=== PATIENT | female | born 1955 | race Caucasian/White ===

== ENCOUNTER 2024-02-24 15:29 | Inpatient (IN) | payer OTHER, SELFPAY ==
--- NOTE | ~2024-02-24 | CT_ITS ---
CT HEAD WITHOUT CONTRAST CLINICAL INFORMATION: New onset psychosis. COMPARISON: None available. TECHNIQUE: Contiguous axial imaging was performed from the skull base to vertex without intravenous administration of contrast. This CT examination was performed using dose optimization techniques as appropriate, variously including the following: *Automated exposure control *Adjustment of mA and/or kV according to patient size (this includes techniques or standardized protocols for targeted exams where dose is matched to indication/reason for exam; i.e. extremities or head) *Use of iterative reconstruction technique FINDINGS: There is no intracranial hemorrhage, hydrocephalus, extra-axial surface collection, midline shift, or other herniation pattern. Oneil to white matter differentiation is diffusely maintained without evidence of an evolved acute territorial infarct. The basilar cisterns are preserved. No significant soft tissue abnormality. No acute osseous abnormality. The paranasal sinuses and the mastoid air cells are well aerated. Degenerative changes involving the right TMJ. CT/CT head/brain wo IV con IMPRESSION: No acute intracranial abnormality.
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
[2024-02-24 15:32] VITALS: BP 152/82; PULSE 87; RESP 16; TEMP 37; O2SAT 98; BMI 27.5
[2024-02-24 16:24] LABS: Appearance Urine Clear; Color Urine Yellow; Glucose Urine UA Negative (Negative); Leukocyte Esterase Urine Large (3+) (Negative); Nitrite Urine Negative (Negative); Specific Gravity - Urine 1.015 (1.005-1.025); UMIC TRIGGER UACC YES; Urine Blood Negative (Negative); Urine Ketones Negative (Negative); Urine Protein Negative (Neg-Trace)
[2024-02-24 16:27] LABS: Bacteria Urine None Seen (None Seen); Hyaline Casts Urine 0-2 /LPF (0-2); RBC Urine 0-2 /HPF (0-2); UACC Culture Trigger YES; WBC Urine >50 /HPF (0-5)
[2024-02-24 16:34] LABS: MANUAL DIFF FLAG NO
[2024-02-24 16:38] LABS: Basophils Percent Auto 0.2 % (0-2); Eosinophils Percent Auto 0.4 % (0-4); Hematocrit 36.9 % (37.0-47.0); Hemoglobin 12.3 g/dl (12.0-16.0); Imm Gran Abs Auto 0.01 X10*3/uL (0.00-0.03); Imm Gran Pct Auto 0.1 % (0.0-0.4); Lymphocytes Absolute Auto 1.5 X10*3/uL (1.2-4.9); Lymphocytes Percent Auto 16.8 % (20-40); Mean Corpuscular HGB Conc 33.3 g/dl (31.0-35.0); Mean Corpuscular Hemoglobin 30.2 pg (27.0-33.0); Mean Corpuscular Volume 90.7 fL (80.0-98.0); Mean Platelet Volume 9.2 fL (9.4-12.3); Monocytes Absolute Auto 0.6 X10*3/uL (0.1-1.2); Monocytes Percent Auto 6.8 % (2-11); Neutrophils Absolute Auto 6.8 x10*3/uL (2.0-8.3); Neutrophils Percent Auto 75.7 % (45-73); Platelet Count 298 X10*3/uL (160-400); Red Blood Count 4.07 X10*6/uL (4.20-5.50); Red Cell Distribution Width 14.2 % (11.0-16.0); White Blood Count 8.9 X10*3/uL (4.8-10.8)
[2024-02-24 17:02] LABS: Alanine Aminotransferase 18 U/L (0-31); Albumin Level 3.6 g/dL (3.5-5.0); Alkaline Phosphatase 50 U/L (39-117); Anion Gap 13 (12-20); Aspartate Amino Transferase 18 U/L (5-31); Bilirubin Total 0.4 mg/dL (0.0-1.0); Blood Urea Nitrogen 8 mg/dL (9-16); Calcium 8.9 mg/dL (8.4-10.2); Carbon Dioxide 23 mmol/L (22-29); Chloride 104 mmol/L (96-108); Estimated Glomerular Filt Rate > 60; Glucose Random 146 mg/dL (60-115); Potassium 4.2 mmol/L (3.3-5.1); Sodium 136 mmol/L (135-145); Total Protein 6.2 g/dL (6.5-8.0)
--- NOTE | 2024-02-24 17:14 | ECG_ITS ---
Test Reason : MED CLEARANCE Blood Pressure : / mmHG Vent. Rate : 101 BPM Atrial Rate : 267 BPM P-R Int : 000 ms QRS Dur : 080 ms QT Int : 382 ms P-R-T Axes : 268 058 040 degrees QTc Int : 495 ms Atrial flutter with variable A-V block with premature ventricular or aberrantly conducted complexes Inferior infarct , age undetermined Abnormal ECG No previous ECGs available Referred By: Yobany Robbins Electronically Signed By:RIGOBERTO TALAVERA
[2024-02-24] MEDS: LORazepam 0.5 MG TABLET PO (20:06)
[2024-02-24] MEDS: Apixaban 5 MG TABLET PO (20:06)
--- NOTE | 2024-02-24 20:51 | MHC.EDTECH ---
pt requesting medications for gas and to sleep
[2024-02-24] MEDS: Simethicone 80 MG TAB.CHEW 160 MG PO (21:54)
[2024-02-24] MEDS: Melatonin 3 MG TABLET 9 MG PO (21:54)
[2024-02-25 08:26] VITALS: BP 95/65; PULSE 86; RESP 16; TEMP 37.2; O2SAT 98
[2024-02-25] MEDS: cefuroxime axetiL 250 MG TABLET PO ×2 (09:30→20:32)
[2024-02-25] MEDS: Loratadine 10 MG TABLET PO (09:31)
[2024-02-25] MEDS: Omeprazole 20 MG CAPSULE.DR PO (09:31)
[2024-02-25] MEDS: Apixaban 5 MG TABLET PO ×2 (09:31→20:32)
[2024-02-25] MEDS: Sertraline HCL 25 MG TABLET PO (09:31)
[2024-02-25] MEDS: Simethicone 80 MG TAB.CHEW 160 MG PO ×2 (10:23→20:32)
[2024-02-25 11:24] LABS: Amphetamine Screen Urine Not Detected (Not Detect); Barbiturates, Urine Not Detected (Not Detect); Benzodiazepines Screen Urine Not Detected (Not Detect); Buprenorphine Scr Not Detected (Not Detect); Cannabinoid Screen Urine Not Detected (Not Detect); Cocaine Screen Urine Not Detected (Not Detect); Fentanyl, urine Not Detected (Not Detect); Methadone Screen, Urine Not Detected (Not Detect); Opiate Screen Urine Not Detected (Not Detect); Oxycodone Screen Urine Not Detected (Not Detect); Phencyclidine Screen Urine Not Detected (Not Detect)
--- NOTE | 2024-02-25 15:01 | PHA.MEDREC ---
Pharmacy Consult ? Medication Reconciliation Pharmacy has reviewed the medication reconciliation completed by nursing.
[2024-02-25 15:20] VITALS: BP 126/64; PULSE 86; RESP 16; TEMP 36.4; O2SAT 100
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
--- NOTE | 2024-02-25 18:02 | PC.ADMIT ---
Pt. arrived on unit via wheelchair at 15:17 escorted by 2 RNs and security. Changeover with contraband search and skin assmt. performed by 2 RNs with no findings. Admission conducted with medical delivery driver. She is A & O X 4. She acknowledges a high degree of anxiety and depression that has resulted in her not taking care of herself, sleeplessness, and approximately 10 lb. weight loss. She denies SI or HI, and believes her son over reacted when she shaved her head due to anxiety. She reports that she has heart palpitations that she has seen a electrical engineering designer for and was prescribed metoprolol for it. She is unclear whether the palpitations are causing her anxiety or the anxiety is causing the heart palpitations. Per crisis eval she was seeing shadows, but she is now denying perceptual disturbances. She ambulates independently without assistive devices with good balance and steady gait. She wears a pull up brief for urinary incontinence. She expresses hope about getting help here with her anxiety and depression and reports feeling safe on the unit. Her son, Anil Murguia was updated via telephone about her admission.
[2024-02-25] MEDS: LORazepam 0.5 MG TABLET PO (20:32)
[2024-02-25] MEDS: Mirtazapine 7.5 MG TABLET PO (20:32)
--- NOTE | 2024-02-26 | ECG_ITS ---
Test Reason : palpitations, weakness Blood Pressure : / mmHG Vent. Rate : 096 BPM Atrial Rate : 271 BPM P-R Int : 000 ms QRS Dur : 070 ms QT Int : 370 ms P-R-T Axes : 000 051 045 degrees QTc Int : 467 ms Atrial flutter with variable A-V block Inferior infarct (cited on or before 25-FEB-2024) Abnormal ECG When compared with ECG of 25-FEB-2024 02:56, Serial changes of evolving Inferior infarct Present Referred By: Guillermina Grfifin Electronically Signed By:RIGOBERTO TALAVERA
[2024-02-26] MEDS: Omeprazole 20 MG CAPSULE.DR PO (06:07)
[2024-02-26 07:55] VITALS: BP 99/51; PULSE 79; RESP 14; TEMP 36.6; O2SAT 98
[2024-02-26] MEDS: Apixaban 5 MG TABLET PO ×2 (07:58→20:25)
[2024-02-26] MEDS: Loratadine 10 MG TABLET PO (07:58)
[2024-02-26] MEDS: cefuroxime axetiL 250 MG TABLET PO ×2 (07:58→20:25)
[2024-02-26] MEDS: Simethicone 80 MG TAB.CHEW 160 MG PO ×2 (08:04→20:25)
[2024-02-26 08:29] LABS: Alanine Aminotransferase 19 U/L (0-31); Alkaline Phosphatase 54 U/L (39-117); Anion Gap 13 (12-20); Aspartate Amino Transferase 17 U/L (5-31); Bilirubin Total 0.6 mg/dL (0.0-1.0); Blood Urea Nitrogen 12 mg/dL (9-16); Calcium 9.6 mg/dL (8.4-10.2); Carbon Dioxide 27 mmol/L (22-29); Chloride 104 mmol/L (96-108); Cholesterol 174 mg/dL (<200); Creatinine Clr Calc Pharmacy 63.2; Estimated Glomerular Filt Rate > 60; Glucose Fasting 109 mg/dL (60-99); HDL Cholesterol 41 mg/dL (>40); LDL Cholesterol Calculated 109 mg/dL (<100); Potassium 4.4 mmol/L (3.3-5.1); Sodium 140 mmol/L (135-145); Total Protein 6.8 g/dL (6.5-8.0); Triglycerides 123 mg/dL (<150)
--- NOTE | 2024-02-26 08:36 | HO.PSYCHPN ---
Subjective Subjective Date of Service: 02/26/24 Reason For Visit: SI Subjective Notes: Conditional Voluntary Interim History: Pt slept about 6hrs. She reports paranoid delusions, stating that she is being monitor by someone. She does not know who. She also reports voices. She reports seeing bubbles coming out of her head that others can't seen, this being reason for shaving her head. She also reports dizziness, feeling very weak and tired. she has ortho hotn. caution about ambulating on her own due to high risk for fall. Her last ekg shows atrial flutter. HR control and she is on beta reyes and anticoagulation- consult to cardiology to assist in management was ordered. Review of Systems Review of Systems Yes all other systems are reviewed and are negative Constitutional: Denies body ache(s), Denies chills, Denies fever(s) and Denies frequent falls Eyes: Denies blurry vision Denies vertigo Cardiovascular: Denies chest pain, Reports palpitations and Denies dyspnea Respiratory: Denies cough and Denies dyspnea Gastrointestinal: Denies abdominal pain, Denies nausea and Denies vomiting Musculoskeletal: Denies back pain Skin/Breast: Denies rash Denies vertigo and Denies frequent falls Psychiatric: Reports anxiety, Reports auditory hallucinations, Reports visual hallucinations and Reports suicidal ideation Endocrine: Reports palpitations Mental Status Exam Mental Status Exam Patient Appearance: Well Grooomed and Appropriate Patient Orientation: Person and Situation Level of Consciousness: Awake and Appropriate Patient Behavior: Appropriate, Cooperative and Passive Mood Description: Withdrawn Affect Description: Constricted Ability to Follow Directions: Good Speech Pattern: Clear Diagnostics Vital Signs (24Hr): Vital Signs - 24 hr 02/25/24 15:20 02/26/24 07:55 Temperature 97.5 F 97.9 F Pulse Rate 86 79 Respiratory Rate 16 14 Blood Pressure 126/64 99/51 L Pulse Oximetry 100 98 Oxygen Delivery Method Room Air Room Air BMI result Body Mass Index 27.5 Labs 02/24/24 16:28 02/26/24 08:03 Labs: Laboratory Results - last 48 hr 02/24/24 02/24/24 02/25/24 16:18 16:28 11:06 WBC 8.9 RBC 4.07 L Hgb 12.3 Hct 36.9 L MCV 90.7 MCH 30.2 MCHC 33.3 RDW 14.2 Plt Count 298 MPV 9.2 L Immature Gran % (Auto) 0.1 Neut % (Auto) 75.7 H Lymph % (Auto) 16.8 L Holmes % (Auto) 6.8 Eos % (Auto) 0.4 Baso % (Auto) 0.2 Lymph # (Auto) 1.5 Holmes # (Auto) 0.6 Eos # (Auto) 0.0 Baso # (Auto) 0.0 Abs Immat Gran (auto) 0.01 Absolute Neuts (auto) 6.8 Absolute Nucleated RBC 0.000 Nucleated RBC % (auto) 0.0 Sodium 136 Potassium 4.2 Chloride 104 Carbon Dioxide 23 Anion Gap 13 BUN 8 L Creatinine 0.74 Estim Creat Clear Calc 70.0 Estimated GFR > 60 Random Glucose 146 H Fasting Glucose Calcium 8.9 Magnesium 2.0 Total Bilirubin 0.4 AST 18 ALT 18 Alkaline Phosphatase 50 Total Protein 6.2 L Albumin 3.6 Triglycerides Cholesterol LDL Cholesterol, Calc HDL Cholesterol Urine Color Yellow Urine Appearance Clear Urine pH 7.0 Ur Specific Percival 1.015 Urine Protein Negative Urine Glucose (UA) Negative Urine Ketones Negative Urine Blood Negative Urine Nitrite Negative Ur Leukocyte Esterase Large (3+) H Urine RBC 0-2 Urine WBC >50 H Ur Squamous Epith Cells 6-10 Urine Bacteria None Seen Hyaline Casts 0-2 Urine Opiates Screen Not Detected Ur Buprenorphine Scrn Not Detected Ur Oxycodone Screen Not Detected Urine Methadone Screen Not Detected Urine Fentanyl Screen Not Detected Ur Barbiturates Screen Not Detected Ur Phencyclidine Scrn Not Detected Ur Amphetamines Screen Not Detected U Benzodiazepines Scrn Not Detected Urine Cocaine Screen Not Detected U Marijuana (THC) Screen Not Detected 02/26/24 08:03 WBC RBC Hgb Hct MCV MCH MCHC RDW Plt Count MPV Immature Gran % (Auto) Neut % (Auto) Lymph % (Auto) Holmes % (Auto) Eos % (Auto) Baso % (Auto) Lymph # (Auto) Holmes # (Auto) Eos # (Auto) Baso # (Auto) Abs Immat Gran (auto) Absolute Neuts (auto) Absolute Nucleated RBC Nucleated RBC % (auto) Sodium 140 Potassium 4.4 Chloride 104 Carbon Dioxide 27 Anion Gap 13 BUN 12 Creatinine 0.82 Estim Creat Clear Calc 63.2 Estimated GFR > 60 Random Glucose Fasting Glucose 109 H Calcium 9.6 D Magnesium Total Bilirubin 0.6 AST 17 ALT 19 Alkaline Phosphatase 54 Total Protein 6.8 Albumin 4.0 Triglycerides 123 Cholesterol 174 LDL Cholesterol, Calc 109 H HDL Cholesterol 41 Urine Color Urine Appearance Urine pH Ur Specific Percival Urine Protein Urine Glucose (UA) Urine Ketones Urine Blood Urine Nitrite Ur Leukocyte Esterase Urine RBC Urine WBC Ur Squamous Epith Cells Urine Bacteria Hyaline Casts Urine Opiates Screen Ur Buprenorphine Scrn Ur Oxycodone Screen Urine Methadone Screen Urine Fentanyl Screen Ur Barbiturates Screen Ur Phencyclidine Scrn Ur Amphetamines Screen U Benzodiazepines Scrn Urine Cocaine Screen U Marijuana (THC) Screen Medications Medications Current Medications Acetaminophen (Acetaminophen 325 Mg Tablet) 650 mg PO Q6H PRN PRN Reason: Headache/Pain Mild Scale (1-3) Al Hydroxide/Mg Hydroxide (Magnesium Hydrox/Alum Hydrox 30 Ml Oral.Susp) 30 ml PO Q6H PRN PRN Reason: Heartburn/Nausea Apixaban (Apixaban 5 Mg Tablet) 5 mg PO BID [facility] Last Admin: 02/26/24 07:58 Dose: 5 mg Cefuroxime Axetil (Cefuroxime Axetil 250 Mg Tablet) 250 mg PO BID [facility] Stop: 02/29/24 21:01 Last Admin: 02/26/24 07:58 Dose: 250 mg Loratadine (Loratadine 10 Mg Tablet) 10 mg PO DAILY [facility] Last Admin: 02/26/24 07:58 Dose: 10 mg Lorazepam (Lorazepam 0.5 Mg Tablet) 0.5 mg PO Q8H PRN PRN Reason: Severe anxiety Last Admin: 02/25/24 20:32 Dose: 0.5 mg Magnesium Hydroxide (Milk Of Magnesia 30 Ml Oral.Susp) 30 ml PO DAILY PRN PRN Reason: Constipation Metoprolol Succinate (Metoprolol Succinate Er 25 Mg Tab.Er.24h) 25 mg PO DAILY [facility]; Protocol Last Admin: 02/26/24 08:00 Dose: Not Given Mirtazapine (Mirtazapine 7.5 Mg Tablet) 7.5 mg PO BEDTIME [facility] Last Admin: 02/25/24 20:32 Dose: 7.5 mg Non-Formulary Medication (Diclofenac Sodium) 1 each TOPICAL QID PRN PRN Reason: Pain (Scale Score 1-3) Omeprazole (Omeprazole 20 Mg Capsule.Dr) 20 mg PO DAILY@0630 [facility] Last Admin: 02/26/24 06:07 Dose: 20 mg Simethicone (Simethicone 80 Mg Tab.Chew) 160 mg PO Q6H PRN PRN Reason: Indigestion Last Admin: 02/26/24 08:04 Dose: 160 mg Trazodone HCl (Trazodone Hcl 50 Mg Tablet) 50 mg PO BEDTIME MRX1 PRN PRN Reason: Insomnia Allergies Allergies Allergy/AdvReac Type Severity Reaction Status Date / Time morphine Allergy Unknown Verified 02/24/24 15:34 Assessment & Plan Assessment & Plan (1) Acute UTI: Status: Acute Code(s): N39.0 - Urinary tract infection, site not specified (2) Depression: Status: Acute Code(s): F32.A - Depression, unspecified Plan The patient is an elderly [place] female, mostly Welsh-speaking, with a past history of anxiety and depression who was brought to the facility after she disclosed exacerbation of depressive symptoms with suicidal ideation. On the emergency room consult was diagnosed a UTI that had been treated with cephalosporins. Plan 02/25- ortho hotn, symptomatic. also a flutter, rate control, although tachy when stands up but this may be more in response to orthostasis. will start low dose haldol 1mg po bid, avoid antipsychotic with alpha addrenergic properties. cardiology consult ordered. Reason for continued inpatient stay Substantial Risk for: inability to function Time Spent With Patient Time: Total time managing care of this patient today ____ minutes.
--- NOTE | 2024-02-26 10:01 | MHC.CLN ---
NUTRITION CONSULT FOR REPORTED WEIGHT LOSS AND DECREASED APPETITE. VISITED WITH PATIENT'S DAUGHTER. CONFIRMED THAT PATIENT HAS NOT BEEN EATING WELL AT HOME. TAKES ENSURE SUPPLEMENT AT HOME AND WOULD LIKE HERE. ORDERING ENSURE BID (700 KCALS, 40 G PROTEIN). FOLLOW UP WEEKLY FOR INTAKE.
[2024-02-26 11:20] VITALS: BP 99/54; PULSE 73
[2024-02-26 20:00] VITALS: BP 112/68; PULSE 100; TEMP 36.2; O2SAT 97
[2024-02-26] MEDS: Mirtazapine 7.5 MG TABLET PO (20:25)
[2024-02-27] MEDS: Omeprazole 20 MG CAPSULE.DR PO (06:28)
[2024-02-27 08:35] VITALS: BP 105/64; PULSE 103; RESP 16; TEMP 36.6; O2SAT 98
[2024-02-27] MEDS: cefuroxime axetiL 250 MG TABLET PO ×2 (08:57→20:30)
[2024-02-27] MEDS: Loratadine 10 MG TABLET PO (08:57)
[2024-02-27] MEDS: Metoprolol Succinate ER 25 MG TAB.ER.24H PO (08:57)
[2024-02-27] MEDS: Apixaban 5 MG TABLET PO ×2 (08:57→20:30)
[2024-02-27] MEDS: Simethicone 80 MG TAB.CHEW 160 MG PO ×2 (09:40→20:35)
--- NOTE | 2024-02-27 11:35 | P.CONCA_ITS ---
History of Present Illness History of Present Illness Date of Service: 02/27/24 Chief complaint: SI Narrative: This is a cardiology consultation regarding atrial flutter. Recent cardiology consultation reviewed from [facility]. It seems that patient had a recent presyncopal type episode and after that, found to be in atrial flutter. She was reasonably well controlled even at baseline per notes. However, she was also put on a small dose of beta-reyes. She was put on anticoagulation. Plan was to do 4 weeks of anticoagulation and then do an elective cardioversion. It appears that in the interim she got admitted here for depression issues. Per notes, she has been having orthostatic type symptoms and she continues to feel the same. Blood pressure is lowish. Otherwise, no documented cardiac history. Review of Systems 2 Review of Systems: Yes all other systems are reviewed and are negative Constitutional: Constitutional: Reports as per HPI and Reports no additional constitutional complaints Eyes: Eyes: Reports as per HPI and Denies no additional eye complaints ENT: Denies system reviewed and no additional complaints, except as documented and Reports as per HPI Cardiovascular: Cardiovascular: Reports as per HPI, Reports no additional cardiovascular complaints, Denies acrocyanosis, Denies cool extremities, Denies chest pain, Denies leg edema, Reports lightheadedness, Denies palpitations and Denies dyspnea Respiratory: Respiratory: Reports as per HPI, Denies no additional respiratory complaints and Denies dyspnea Gastrointestinal: Gastrointestinal: Reports as per HPI and Denies no additional gastrointestinal complaints Genitourinary: Genitourinary: Reports as per HPI Musculoskeletal: Musculoskeletal: Reports no additional musculoskeletal complaints and Reports as per HPI Integumentary/Breasts: Skin/Breast: Reports system reviewed and no additional complaints, except as docu Neurologic: Reports system reviewed and no additional complaints, except as documented and Reports as per HPI Psychiatric: Psychiatric: Reports no additional psychiatric complaints and Reports as per HPI Endocrine: Endocrine: Reports no additional endocrine complaints, Reports as per HPI and Denies palpitations Hematologic/Lymphatic: Hematologic/Lymphatic: Reports no additional hematologic/lymphatic complaints and Reports as per HPI Allergic/Immunologic: Allergic/Immunologic: Reports no additional allergic/immunologic complaints and Reports as per HPI [facility] Family History Pertinent family history: No pertinent family history Social History Social History Household Members: None Housing: Apartment Do you presently have visiting nurse or other home services: No Patient Tobacco Use Status: Never used Tobacco Smoked in Last 30 Days: No Patient Interested in Nicotine Replacement: No (no smoke hx.) Patient Given Instructions on How to Stop Smoking: No (no smoke hx.) Second Hand Smoke Exposure: No Use of substances other than those prescribed or required for medical reasons: No Currently Displaying Signs/Symptoms of Drug Intoxication Withdrawal: No Any prior treatment program specific to substance use: No Have you been hit, kicked, punched, or otherwise hurt by someone within the past year? If so, by whom?: No Do you feel safe in your current relationship?: No Current Relationship Is there a partner from a previous relationship who is making you feel unsafe now?: No Are you made to feel afraid or neglected: No Spiritual Healthcare Practices: No Sabianism Healthcare Practices: No Cultural Healthcare Practices: No Advance Directives: No Advance Directives Information Provided: No Do you have thoughts of harming others: None Do you have a plan to hurt others: No Plan Recently lost weight without trying: Yes How much weight loss: 2-13 pounds Eating poorly because of decreased appetite: Yes Nutrition screen score: 4 Nutrition Risks: No Nutritional Risk Patient : No : No Poor oral hygiene: No Meds Allergies Allergy/AdvReac Type Severity Reaction Status Date / Time morphine Allergy Unknown Verified 02/24/24 15:34 Active Medications: Current Medications Acetaminophen (Acetaminophen 325 Mg Tablet) 650 mg PO Q6H PRN PRN Reason: Headache/Pain Mild Scale (1-3) Al Hydroxide/Mg Hydroxide (Magnesium Hydrox/Alum Hydrox 30 Ml Oral.Susp) 30 ml PO Q6H PRN PRN Reason: Heartburn/Nausea Apixaban (Apixaban 5 Mg Tablet) 5 mg PO BID [facility] Last Admin: 02/27/24 08:57 Dose: 5 mg Cefuroxime Axetil (Cefuroxime Axetil 250 Mg Tablet) 250 mg PO BID [facility] Stop: 02/29/24 21:01 Last Admin: 02/27/24 08:57 Dose: 250 mg Haloperidol (Haloperidol 1 Mg Tablet) 1 mg PO BID [facility] Last Admin: 02/27/24 09:42 Dose: Not Given Loratadine (Loratadine 10 Mg Tablet) 10 mg PO DAILY [facility] Last Admin: 02/27/24 08:57 Dose: 10 mg Magnesium Hydroxide (Milk Of Magnesia 30 Ml Oral.Susp) 30 ml PO DAILY PRN PRN Reason: Constipation Metoprolol Succinate (Metoprolol Succinate Er 25 Mg Tab.Er.24h) 25 mg PO DAILY [facility]; Protocol Last Admin: 02/27/24 08:57 Dose: 25 mg Mirtazapine (Mirtazapine 7.5 Mg Tablet) 7.5 mg PO BEDTIME [facility] Last Admin: 02/26/24 20:25 Dose: 7.5 mg Non-Formulary Medication (Diclofenac Sodium) 1 each TOPICAL QID PRN PRN Reason: Pain (Scale Score 1-3) Omeprazole (Omeprazole 20 Mg Capsule.Dr) 20 mg PO DAILY@0630 [facility] Last Admin: 02/27/24 06:28 Dose: 20 mg Simethicone (Simethicone 80 Mg Tab.Chew) 160 mg PO Q6H PRN PRN Reason: Indigestion Last Admin: 02/27/24 09:40 Dose: 160 mg Home Medications ?Medication ?Instructions ?Recorded ?Confirmed ?Last Taken ?Type apixaban 5 mg tablet (Eliquis) 5 mg PO BID 02/24/24 02/24/24 02/24/24 08:00 History cetirizine 10 mg tablet 10 mg PO DAILY 02/24/24 02/24/24 02/24/24 08:00 History diclofenac sodium 1 % topical gel 1 ea topical QID PRN Pain (Scale 02/24/24 02/24/24 Unknown History Score 1-3) metoprolol succinate 25 mg 25 mg PO DAILY 02/24/24 02/24/24 02/24/24 08:00 History tablet,extended release 24 hr pantoprazole 40 mg tablet,delayed 40 mg PO DAILY 02/24/24 02/24/24 02/24/24 08:00 History release sertraline 25 mg tablet 25 mg PO DAILY 02/24/24 02/24/24 02/24/24 08:00 History Physical Exam 2 Vital Signs: Vital Signs: Last Vital Signs Temp 97.9 F 02/27/24 08:35 Pulse 103 H 02/27/24 08:35 Resp 16 02/27/24 08:35 BP 105/64 02/27/24 08:35 Pulse Ox 98 02/27/24 08:35 O2 Del Method Room Air 02/27/24 08:35 BMI result Body Mass Index 27.5 Const: General: comfortable and no acute distress O rientation/consciousness: patient oriented x3 HEENT: Other: Unremarkable Head: Yes normal to inspection Neck: Neck: Yes normal visual inspection Chest: Chest palpation & inspection: normal inspection of the chest Resp: Auscultation: clear to auscultation bilaterally Cardio: Palpation: normal PMI Heart sounds: S1 normal heart sound present, S2 normal heart sound present, no gallops, no murmurs and no rubs GI: Palpation (GI): Soft to palpation Back/Spine/Pelvis: Other: unremarkable Skin: General skin exam: no rashes or lesions noted Neuro: General: patient oriented x3 Extrem: General: Yes normal to inspection Psych: Mental Status: mental status grossly normal Objective Labs and Meds 02/24/24 16:28 02/26/24 08:03 ECG Interpretation: EKG from the 24 of February with atrial flutter at a rate of 101/Min. EKG from the following day shows atrial flutter rate of 96/Min. Imaging Radiologist's impression: Impressions Head CT 02/26/24 12:10 IMPRESSION: No acute intracranial abnormality. Assessment and Plan (1) Atrial flutter by electrocardiogram: Status: Acute (2) Depression: Status: Acute (3) Orthostatic hypotension: Status: Acute Plan Atrial flutter with mostly controlled rates; orthostatic hypotension; dizziness; depression. Per cardiology notes as an outpatient, plan for elective cardioversion after 4 weeks of anticoagulation. That seems very reasonable. We can stop the beta-blockers and just keep her on Eliquis only. Monitor vital signs to ensure she does not get too tachycardic. Stopping beta-blockers may help the dizziness. If she does get rapid, then may need to resume it, possibly half the dose. 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 Procedures Date of Service Date of Service: 02/27/24
--- NOTE | 2024-02-27 12:48 | P.PNPSI_ITS ---
Subjective Subjective Date of Service: 02/27/24 Reason For Visit: SI Subjective Notes: Conditional Voluntary Interim History: Patient was seen and discussed in. Records and plans were reviewed. She refused her Haldol because it does not make her feel good. She was seen by cardiology for atrial flutter. She is going to be seeing them on an outpatient basis also. No complaints. Eating and sleeping adequately. Review of Systems Review of Systems Yes all other systems are reviewed and are negative Mental Status Exam Mental Status Exam Patient Appearance: Well Grooomed and Appropriate Patient Orientation: Person and Situation Level of Consciousness: Awake and Appropriate Patient Behavior: Appropriate, Cooperative and Passive Mood Description: Withdrawn Affect Description: Constricted Ability to Follow Directions: Good Speech Pattern: Clear Diagnostics Vital Signs (24Hr): Vital Signs - 24 hr 02/26/24 20:00 02/27/24 08:35 Temperature 97.1 F 97.9 F Pulse Rate 100 103 H Respiratory Rate 16 Blood Pressure 112/68 105/64 Pulse Oximetry 97 98 Oxygen Delivery Method Room Air Room Air BMI result Body Mass Index 27.5 Labs 02/24/24 16:28 02/26/24 08:03 Labs: Laboratory Results - last 48 hr 02/26/24 08:03 Sodium 140 Potassium 4.4 Chloride 104 Carbon Dioxide 27 Anion Gap 13 BUN 12 Creatinine 0.82 Estim Creat Clear Calc 63.2 Estimated GFR > 60 Fasting Glucose 109 H Calcium 9.6 D Total Bilirubin 0.6 AST 17 ALT 19 Alkaline Phosphatase 54 Total Protein 6.8 Albumin 4.0 Triglycerides 123 Cholesterol 174 LDL Cholesterol, Calc 109 H HDL Cholesterol 41 Imaging Radiology Impressions: ITS Impressions Head CT 02/26/24 12:10 IMPRESSION: No acute intracranial abnormality. Medications Medications Current Medications Acetaminophen (Acetaminophen 325 Mg Tablet) 650 mg PO Q6H PRN PRN Reason: Headache/Pain Mild Scale (1-3) Al Hydroxide/Mg Hydroxide (Magnesium Hydrox/Alum Hydrox 30 Ml Oral.Susp) 30 ml PO Q6H PRN PRN Reason: Heartburn/Nausea Apixaban (Apixaban 5 Mg Tablet) 5 mg PO BID [facility] Last Admin: 02/27/24 08:57 Dose: 5 mg Cefuroxime Axetil (Cefuroxime Axetil 250 Mg Tablet) 250 mg PO BID [facility] Stop: 02/29/24 21:01 Last Admin: 02/27/24 08:57 Dose: 250 mg Haloperidol (Haloperidol 1 Mg Tablet) 1 mg PO BID [facility] Last Admin: 02/27/24 09:42 Dose: Not Given Loratadine (Loratadine 10 Mg Tablet) 10 mg PO DAILY [facility] Last Admin: 02/27/24 08:57 Dose: 10 mg Magnesium Hydroxide (Milk Of Magnesia 30 Ml Oral.Susp) 30 ml PO DAILY PRN PRN Reason: Constipation Metoprolol Succinate (Metoprolol Succinate Er 25 Mg Tab.Er.24h) 25 mg PO DAILY [facility]; Protocol Last Admin: 02/27/24 08:57 Dose: 25 mg Mirtazapine (Mirtazapine 7.5 Mg Tablet) 7.5 mg PO BEDTIME [facility] Last Admin: 02/26/24 20:25 Dose: 7.5 mg Omeprazole (Omeprazole 20 Mg Capsule.Dr) 20 mg PO DAILY@0630 [facility] Last Admin: 02/27/24 06:28 Dose: 20 mg Simethicone (Simethicone 80 Mg Tab.Chew) 160 mg PO Q6H PRN PRN Reason: Indigestion Last Admin: 02/27/24 09:40 Dose: 160 mg Allergies Allergies Allergy/AdvReac Type Severity Reaction Status Date / Time morphine Allergy Unknown Verified 02/24/24 15:34 Assessment & Plan Assessment & Plan (1) Atrial flutter by electrocardiogram: Status: Acute Code(s): I48.92 - Unspecified atrial flutter (2) Depression: Status: Acute Code(s): F32.A - Depression, unspecified (3) Orthostatic hypotension: Status: Acute Code(s): I95.1 - Orthostatic hypotension Plan Atrial flutter with mostly controlled rates; orthostatic hypotension; dizziness; depression. Per cardiology notes as an outpatient, plan for elective cardioversion after 4 weeks of anticoagulation. That seems very reasonable. We can stop the beta-blockers and just keep her on Eliquis only. Monitor vital signs to ensure she does not get too tachycardic. Stopping beta-blockers may help the dizziness. If she does get rapid, then may need to resume it, possibly half the dose. 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 02/26: Continue current regimen and planslan Reason for continued inpatient stay Substantial Risk for: med/psych decompensation Time Spent With Patient Time: Total time managing care of this patient today ____ minutes.
[2024-02-27 20:00] VITALS: BP 123/72; PULSE 97; RESP 16; TEMP 36.2; O2SAT 98
[2024-02-27] MEDS: Melatonin 3 MG TABLET 9 MG PO (20:30)
[2024-02-28] MEDS: Magnesium Hydrox/Alum Hydrox 30 ML ORAL.SUSP PO (04:16)
[2024-02-28] MEDS: Omeprazole 20 MG CAPSULE.DR PO (06:26)
[2024-02-28 08:17] VITALS: BP 101/59; PULSE 88; RESP 16; TEMP 36.5; O2SAT 95
[2024-02-28] MEDS: Loratadine 10 MG TABLET PO (08:25)
[2024-02-28] MEDS: cefuroxime axetiL 250 MG TABLET PO ×2 (08:25→21:06)
[2024-02-28] MEDS: Apixaban 5 MG TABLET PO ×2 (08:25→21:06)
[2024-02-28] MEDS: Simethicone 80 MG TAB.CHEW 160 MG PO ×2 (08:27→21:12)
--- NOTE | 2024-02-28 10:29 | P.PNPSI_ITS ---
Subjective Subjective Date of Service: 02/28/24 Reason For Visit: SI Subjective Notes: Conditional Voluntary Interim History: Patient was seen and discussed in. Records and plans were reviewed. She again refused her Haldol and Remeron stating that the school bus driver told her not to take it which does not appear to be the case. She did sleep much better with melatonin. She has been stable and we are going to change her level of observation to every 15 minutes. No other changes today. Review of Systems Review of Systems Yes all other systems are reviewed and are negative Mental Status Exam Mental Status Exam Patient Appearance: Well Grooomed and Appropriate Patient Orientation: Person and Situation Level of Consciousness: Awake and Appropriate Patient Behavior: Appropriate, Cooperative and Passive Mood Description: Withdrawn Affect Description: Constricted Ability to Follow Directions: Good Speech Pattern: Clear Diagnostics Vital Signs (24Hr): Vital Signs - 24 hr 02/27/24 20:00 02/28/24 08:17 Temperature 97.2 F 97.7 F Pulse Rate 97 88 Respiratory Rate 16 16 Blood Pressure 123/72 101/59 L Pulse Oximetry 98 95 Oxygen Delivery Method Room Air Room Air BMI result Body Mass Index 27.5 Labs 02/24/24 16:28 02/26/24 08:03 Imaging Radiology Impressions: ITS Impressions Head CT 02/26/24 12:10 IMPRESSION: No acute intracranial abnormality. Medications Medications Current Medications Acetaminophen (Acetaminophen 325 Mg Tablet) 650 mg PO Q6H PRN PRN Reason: Headache/Pain Mild Scale (1-3) Al Hydroxide/Mg Hydroxide (Magnesium Hydrox/Alum Hydrox 30 Ml Oral.Susp) 30 ml PO Q6H PRN PRN Reason: Heartburn/Nausea Last Admin: 02/28/24 04:16 Dose: 30 ml Apixaban (Apixaban 5 Mg Tablet) 5 mg PO BID [facility] Last Admin: 02/28/24 08:25 Dose: 5 mg Cefuroxime Axetil (Cefuroxime Axetil 250 Mg Tablet) 250 mg PO BID [facility] Stop: 02/29/24 21:01 Last Admin: 02/28/24 08:25 Dose: 250 mg Haloperidol (Haloperidol 1 Mg Tablet) 1 mg PO BID [facility] Last Admin: 02/28/24 10:01 Dose: Not Given Loratadine (Loratadine 10 Mg Tablet) 10 mg PO DAILY [facility] Last Admin: 02/28/24 08:25 Dose: 10 mg Magnesium Hydroxide (Milk Of Magnesia 30 Ml Oral.Susp) 30 ml PO DAILY PRN PRN Reason: Constipation Melatonin (Melatonin 3 Mg Tablet) 9 mg PO BEDTIME PRN PRN Reason: Insomnia Last Admin: 02/27/24 20:30 Dose: 9 mg Metoprolol Succinate (Metoprolol Succinate Er 25 Mg Tab.Er.24h) 25 mg PO DAILY [facility]; Protocol Last Admin: 02/28/24 10:01 Dose: Not Given Mirtazapine (Mirtazapine 7.5 Mg Tablet) 7.5 mg PO BEDTIME [facility] Last Admin: 02/27/24 20:33 Dose: Not Given Omeprazole (Omeprazole 20 Mg Capsule.Dr) 20 mg PO DAILY@0630 [facility] Last Admin: 02/28/24 06:26 Dose: 20 mg Simethicone (Simethicone 80 Mg Tab.Chew) 160 mg PO Q6H PRN PRN Reason: Indigestion Last Admin: 02/28/24 08:27 Dose: 160 mg Allergies Allergies Allergy/AdvReac Type Severity Reaction Status Date / Time morphine Allergy Unknown Verified 02/24/24 15:34 Assessment & Plan Assessment & Plan (1) Atrial flutter by electrocardiogram: Status: Acute Code(s): I48.92 - Unspecified atrial flutter (2) Depression: Status: Acute Code(s): F32.A - Depression, unspecified (3) Orthostatic hypotension: Status: Acute Code(s): I95.1 - Orthostatic hypotension Plan Atrial flutter with mostly controlled rates; orthostatic hypotension; dizziness; depression. Per cardiology notes as an outpatient, plan for elective cardioversion after 4 weeks of anticoagulation. That seems very reasonable. We can stop the beta-blockers and just keep her on Eliquis only. Monitor vital signs to ensure she does not get too tachycardic. Stopping beta-blockers may help the dizziness. If she does get rapid, then may need to resume it, possibly half the dose. 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 02/26: Continue current regimen and plans 02/27: Continue current regimen and plans. Change to 15 minute checks Reason for continued inpatient stay Substantial Risk for: med/psych decompensation Time Spent With Patient Time: Total time managing care of this patient today ____ minutes.
--- NOTE | 2024-02-28 18:51 | PC.NURSE ---
pt refused 9am scheduled Haldol and Remeron. The song writer said I shouldn't take it . Pt was educated and still declined.
[2024-02-28 20:00] VITALS: BP 114/68; PULSE 99; RESP 18; TEMP 36.4; O2SAT 97
[2024-02-28] MEDS: Melatonin 3 MG TABLET 9 MG PO (21:04)
[2024-02-29] MEDS: Omeprazole 20 MG CAPSULE.DR PO (06:11)
[2024-02-29 08:00] VITALS: BP 96/64; PULSE 98; RESP 18; TEMP 36.6; O2SAT 98
[2024-02-29] MEDS: cefuroxime axetiL 250 MG TABLET PO ×2 (08:20→20:20)
[2024-02-29] MEDS: Apixaban 5 MG TABLET PO ×2 (08:20→20:18)
[2024-02-29] MEDS: Loratadine 10 MG TABLET PO (08:21)
[2024-02-29] MEDS: Simethicone 80 MG TAB.CHEW 160 MG PO ×2 (08:58→20:18)
--- NOTE | 2024-02-29 10:02 | HO.PSYCHPN ---
Subjective Subjective Date of Service: 02/29/24 Reason For Visit: SI Subjective Notes: Conditional Voluntary and 3 Day Interim History: The nursing staff reported the patient has refused Haldol and Remeron for the last 2 days in a row. She signed a 3 day notice. The nurse practitioner reported that she contacting Thursday to her son and apparently the psychosis is not new, she had been struggling with this for the last 12-15 years ago. On interview the patient reported that she is feeling fine and she wants to go back home. She denies suicidal ideation. she doesn't want to take any medications, she stated that her son is schizophrenic and she has never heard voices. The occupational therapist will do a [place] test on Indonesian today but apparently her attention span is limited and she participation in groups is not 100% of we will reassess with results. Mental Status Exam Mental Status Exam Patient Appearance: Appropriate Patient Orientation: Person and Situation Level of Consciousness: Awake and Appropriate Patient Behavior: Guarded and Passive Mood Description: Withdrawn Affect Description: Constricted Patient Cognition Impaired: Yes Ability to Follow Directions: Good Speech Pattern: Clear Hallucinations: None Delusions: Ideas of Reference Thought Process: Distracted and Slowed Thinking Thought Content: positive for [place] and positive for Poverty of Content Judgement: Fair Diagnostics Vital Signs (24Hr): Vital Signs - 24 hr 02/28/24 20:00 Temperature 97.6 F Pulse Rate 99 Respiratory Rate 18 Blood Pressure 114/68 Pulse Oximetry 97 Oxygen Delivery Method Room Air BMI result Body Mass Index 27.5 Labs 02/24/24 16:28 02/26/24 08:03 Imaging Radiology Impressions: ITS Impressions Head CT 02/26/24 12:10 IMPRESSION: No acute intracranial abnormality. Medications Medications Current Medications Acetaminophen (Acetaminophen 325 Mg Tablet) 650 mg PO Q6H PRN PRN Reason: Headache/Pain Mild Scale (1-3) Al Hydroxide/Mg Hydroxide (Magnesium Hydrox/Alum Hydrox 30 Ml Oral.Susp) 30 ml PO Q6H PRN PRN Reason: Heartburn/Nausea Last Admin: 02/28/24 04:16 Dose: 30 ml Apixaban (Apixaban 5 Mg Tablet) 5 mg PO BID [facility] Last Admin: 02/29/24 08:20 Dose: 5 mg Cefuroxime Axetil (Cefuroxime Axetil 250 Mg Tablet) 250 mg PO BID [facility] Stop: 02/29/24 21:01 Last Admin: 02/29/24 08:20 Dose: 250 mg Haloperidol (Haloperidol 1 Mg Tablet) 1 mg PO BID [facility] Last Admin: 02/29/24 08:20 Dose: 1 mg Loratadine (Loratadine 10 Mg Tablet) 10 mg PO DAILY [facility] Last Admin: 02/29/24 08:21 Dose: 10 mg Magnesium Hydroxide (Milk Of Magnesia 30 Ml Oral.Susp) 30 ml PO DAILY PRN PRN Reason: Constipation Melatonin (Melatonin 3 Mg Tablet) 9 mg PO BEDTIME PRN PRN Reason: Insomnia Last Admin: 02/28/24 21:04 Dose: 6 mg Metoprolol Succinate (Metoprolol Succinate Er 25 Mg Tab.Er.24h) 25 mg PO DAILY [facility]; Protocol Last Admin: 02/28/24 10:01 Dose: Not Given Mirtazapine (Mirtazapine 7.5 Mg Tablet) 7.5 mg PO BEDTIME [facility] Last Admin: 02/28/24 21:09 Dose: Not Given Omeprazole (Omeprazole 20 Mg Capsule.Dr) 20 mg PO DAILY@0630 [facility] Last Admin: 02/29/24 06:11 Dose: 20 mg Simethicone (Simethicone 80 Mg Tab.Chew) 160 mg PO Q6H PRN PRN Reason: Indigestion Last Admin: 02/29/24 08:58 Dose: 160 mg Allergies Allergies Allergy/AdvReac Type Severity Reaction Status Date / Time morphine Allergy Unknown Verified 02/24/24 15:34 Assessment & Plan Assessment & Plan (1) Atrial flutter by electrocardiogram: Status: Acute Code(s): I48.92 - Unspecified atrial flutter (2) Depression: Status: Acute Code(s): F32.A - Depression, unspecified (3) Orthostatic hypotension: Status: Acute Code(s): I95.1 - Orthostatic hypotension Plan Atrial flutter with mostly controlled rates; orthostatic hypotension; dizziness; depression. Per cardiology notes as an outpatient, plan for elective cardioversion after 4 weeks of anticoagulation. That seems very reasonable. We can stop the beta-blockers and just keep her on Eliquis only. Monitor vital signs to ensure she does not get too tachycardic. Stopping beta-blockers may help the dizziness. If she does get rapid, then may need to resume it, possibly half the dose. 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 Plan 1. Gather collateral information. 2. Continue with recommendation of Cardiology. 3. Continue with Haldol 1 mg p.o. b.i.d. and Remeron 7.5 mg p.o. q.h.s.. Will provide psychoeducation into the medication management. 4. Continue 15 minutes checks. Reason for continued inpatient stay Substantial Risk for: inability to function, rapid decompensation and med/psych decompensation Time Spent With Patient Time: Total time managing care of this patient today _20___ minutes.
[2024-02-29 10:43] VITALS: BP 96/64; PULSE 98
--- NOTE | 2024-02-29 18:41 | PC.NURSE ---
Urine sample collected for U/a, awaiting results.
[2024-02-29 19:45] LABS: Appearance Urine Clear; Color Urine Yellow; Glucose Urine UA Negative (Negative); Leukocyte Esterase Urine Large (3+) (Negative); Nitrite Urine Negative (Negative); Specific Gravity - Urine <= 1.005 (1.005-1.025); UMIC TRIGGER UACC YES; Urine Blood Negative (Negative); Urine Ketones Negative (Negative); Urine Protein Negative (Neg-Trace)
[2024-02-29 19:49] LABS: Bacteria Urine None Seen (None Seen); Hyaline Casts Urine 0-2 /LPF (0-2); RBC Urine 0-2 /HPF (0-2); Squamous Epithelial Cell Urine 0-2 /HPF (0-2); UACC Culture Trigger YES
[2024-02-29 20:00] VITALS: BP 116/69; PULSE 97; RESP 18; TEMP 36.1; O2SAT 96
[2024-02-29] MEDS: Melatonin 3 MG TABLET 9 MG PO (20:19)
[2024-03-01] MEDS: Omeprazole 20 MG CAPSULE.DR PO (06:18)
[2024-03-01 08:46] VITALS: BP 151/68; PULSE 80; RESP 16; TEMP 36.9; O2SAT 96
[2024-03-01] MEDS: Apixaban 5 MG TABLET PO ×2 (09:30→20:32)
[2024-03-01] MEDS: Loratadine 10 MG TABLET PO (09:30)
[2024-03-01] MEDS: Simethicone 80 MG TAB.CHEW 160 MG PO ×2 (09:30→20:36)
--- NOTE | 2024-03-01 09:48 | PM.EVENT ---
Event Note Date of Service: 03/01/24 Event Note: Hospitalist consult placed for evaluation of UTI. The patient had urinalysis drawn on 02/28 with 3+ leukocytes but negative bacteria. No urinary sediment. Urine culture is pending. At this time, there is no evidence of urinary tract infection. Follow urine cultures. If positive, please reach out to hospitalist service for antibiotic recommendations. Previous urine culture grew strep B which is non female does not require treatment. Time Spent With Patient Time: Total time managing care of this patient today ____ minutes.
--- NOTE | 2024-03-01 12:07 | HO.PSYCHPN ---
Subjective Subjective Date of Service: 03/01/24 Reason For Visit: SI Subjective Notes: Conditional Voluntary Interim History: The nursing staff reported that the patient has refused her Haldol, she denies SI or HI, she slept 7 hours. OT reported that she comes to groups and she leaves early, no behavioral problems, pleasant on approach. She had an u/a positive today but no symptoms. I consulted hospitalist and at this moment, she doesn;t need ATB. On interview, she denied suicidal thoughts, denies pscyhosis. She retracted the 3 day letter yesterday. Today the SW contacted her children and apparently she had been psychotic for years without treatment. Family meeting for next Thursday. Mental Status Exam Mental Status Exam Patient Appearance: Appropriate Patient Orientation: Person and Situation Level of Consciousness: Awake Patient Behavior: Guarded and Passive Mood Description: Withdrawn Affect Description: Constricted Ability to Follow Directions: Fair Speech Pattern: Clear Hallucinations: None Delusions: Ideas of Reference Thought Process: Distracted and Slowed Thinking Thought Content: positive for [place] and positive for Poverty of Content Judgement: Fair Diagnostics Vital Signs (24Hr): Vital Signs - 24 hr 02/29/24 20:00 03/01/24 08:46 Temperature 97 F 98.4 F Pulse Rate 97 80 Respiratory Rate 18 16 Blood Pressure 116/69 151/68 H Pulse Oximetry 96 96 Oxygen Delivery Method Room Air Room Air BMI result Body Mass Index 27.5 Labs 02/24/24 16:28 02/26/24 08:03 Labs: Laboratory Results - last 48 hr 02/29/24 17:55 Urine Color Yellow Urine Appearance Clear Urine pH 6.0 Ur Specific [place] <= 1.005 Urine Protein Negative Urine Glucose (UA) Negative Urine Ketones Negative Urine Blood Negative Urine Nitrite Negative Ur Leukocyte Esterase Large (3+) H Urine RBC 0-2 Urine WBC 6-10 H Ur Squamous Epith Cells 0-2 Urine Bacteria None Seen Hyaline Casts 0-2 Imaging Radiology Impressions: ITS Impressions Head CT 02/26/24 12:10 IMPRESSION: No acute intracranial abnormality. Medications Medications Current Medications Acetaminophen (Acetaminophen 325 Mg Tablet) 650 mg PO Q6H PRN PRN Reason: Headache/Pain Mild Scale (1-3) Al Hydroxide/Mg Hydroxide (Magnesium Hydrox/Alum Hydrox 30 Ml Oral.Susp) 30 ml PO Q6H PRN PRN Reason: Heartburn/Nausea Last Admin: 02/28/24 04:16 Dose: 30 ml Apixaban (Apixaban 5 Mg Tablet) 5 mg PO BID [facility] Last Admin: 03/01/24 09:30 Dose: 5 mg Haloperidol (Haloperidol 1 Mg Tablet) 1 mg PO BID [facility] Last Admin: 03/01/24 09:30 Dose: Not Given Loratadine (Loratadine 10 Mg Tablet) 10 mg PO DAILY [facility] [place] Last Admin: 03/01/24 09:30 Dose: 10 mg Magnesium Hydroxide (Milk Of Magnesia 30 Ml Oral.Susp) 30 ml PO DAILY PRN PRN Reason: Constipation Melatonin (Melatonin 3 Mg Tablet) 9 mg PO BEDTIME PRN PRN Reason: Insomnia Last Admin: 02/29/24 20:19 Dose: 6 mg Metoprolol Succinate (Metoprolol Succinate Er 25 Mg Tab.Er.24h) 25 mg PO DAILY [facility] [place]; Protocol Last Admin: 02/29/24 10:43 Dose: Not Given Mirtazapine (Mirtazapine 7.5 Mg Tablet) 7.5 mg PO BEDTIME [facility] [place] Last Admin: 02/29/24 20:21 Dose: Not Given Omeprazole (Omeprazole 20 Mg Capsule.Dr) 20 mg PO DAILY@0630 [facility] Last Admin: 03/01/24 06:18 Dose: 20 mg Simethicone (Simethicone 80 Mg Tab.Chew) 160 mg PO Q6H PRN PRN Reason: Indigestion Last Admin: 03/01/24 09:30 Dose: 160 mg Allergies Allergies Allergy/AdvReac Type Severity Reaction Status Date / Time morphine Allergy Unknown Verified 02/24/24 15:34 Assessment & Plan Assessment & Plan (1) Atrial flutter by electrocardiogram: Status: Acute Code(s): I48.92 - Unspecified atrial flutter (2) Depression: Status: Acute Code(s): F32.A - Depression, unspecified (3) Orthostatic hypotension: Status: Acute Code(s): I95.1 - Orthostatic hypotension Plan Atrial flutter with mostly controlled rates; orthostatic hypotension; dizziness; depression. Per cardiology notes as an outpatient, plan for elective cardioversion after 4 weeks of anticoagulation. That seems very reasonable. We can stop the beta-blockers and just keep her on Eliquis only. Monitor vital signs to ensure she does not get too tachycardic. Stopping beta-blockers may help the dizziness. If she does get rapid, then may need to resume it, possibly half the dose. Otherwise, keep outpatient appointments with her own hide worker. Plan 1. Gather collateral information. 2. Continue with recommendation of Cardiology. 3. Continue with Haldol 1 mg p.o. b.i.d. and Remeron 7.5 mg p.o. q.h.s.. Will provide psychoeducation into the medication management. 4. Continue 15 minutes checks. Reason for continued inpatient stay Substantial Risk for: inability to function, rapid decompensation and med/psych decompensation Time Spent With Patient Time: Total time managing care of this patient today __20__ minutes.
--- NOTE | 2024-03-01 12:48 | PM.EVENT ---
Documented by User: Guillermina Griffin NP 03/01/24 12:49 Event Note Date of Service: 03/01/24 Time Spent With Patient Time: Total time managing care of this patient today ____ minutes. Event Note Date of Service: 03/01/24 Psych Restraint Event Note: cancelled Time Spent With Patient Time: Total time managing care of this patient today ____ minutes. Documented by User: Geo Zaldivar MD 03/02/24 11:06 Event Note Date of Service: 03/02/24 Event Note Date of Service: 03/02/24
[2024-03-01] MEDS: Melatonin 3 MG TABLET 9 MG PO (20:36)
[2024-03-01 20:50] VITALS: BP 110/66; PULSE 93; RESP 16; TEMP 36.5; O2SAT 98
[2024-03-02] MEDS: Omeprazole 20 MG CAPSULE.DR PO (06:01)
[2024-03-02 08:38] VITALS: BP 95/57; PULSE 101; RESP 15; TEMP 36.7; O2SAT 99
[2024-03-02] MEDS: Loratadine 10 MG TABLET PO (08:40)
[2024-03-02] MEDS: Apixaban 5 MG TABLET PO (08:40)
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
== END 2024-03-02 10:40 | disposition home or self-care (01) | DRG 881 ==
LOC: HO.ED 02-25 13:34 → HO.PGERI 02-25 14:38
PROVIDERS: Physician Assistant; Admitting Provider Psychiatry & Neurology Psychiatry; Emergency Provider Internal Medicine; Visit Provider Psychiatry & Neurology Psychiatry
DX: F32.A Depression, unspecified (principal); R45.851 Suicidal ideations; N39.0 Urinary tract infection, site not specified; I48.92 Unspecified atrial flutter; F05 Delirium due to known physiological condition; I95.1 Orthostatic hypotension; Z85.3 Personal history of malignant neoplasm of breast; Z79.01 Long term (current) use of anticoagulants; Z79.899 Other long term (current) drug therapy
CPT/HCPCS: 36415; 70450; 80053; 80061; 80307; 81001; 83735; 85025; 87086; 87147; 93005; 99285

== ENCOUNTER → 2024-02-25 13:21 | Outpatient (BNV) | payer OTHER, SELFPAY | PROVIDERS: Admitting Provider Psychiatry & Neurology Psychiatry; Emergency Provider Internal Medicine; Visit Provider Internal Medicine | DX: I48.92 Unspecified atrial flutter (principal); F32.A Depression, unspecified; I95.1 Orthostatic hypotension | CPT/HCPCS: 99222 ==

== ENCOUNTER → 2024-02-25 13:21 | Outpatient (BNV) | payer OTHER, SELFPAY | PROVIDERS: Admitting Provider Psychiatry & Neurology Psychiatry; Emergency Provider Internal Medicine; Visit Provider Psychiatry & Neurology Psychiatry | DX: F32.3 Major depressive disorder, single episode, severe with psychotic features (principal); I48.92 Unspecified atrial flutter; I95.1 Orthostatic hypotension; N39.0 Urinary tract infection, site not specified | CPT/HCPCS: 90792; 99231; 99232; 99238; 99499 ==